=== PATIENT | female | born 1950 | race Caucasian/White ===

== ENCOUNTER 2017-09-14 19:38 | Inpatient (IN) | payer MEDICARE, BC, OTHER ==
[~2017-09-14] VITALS: Ht 167.6 cm; Wt 74.8 kg
[2017-09-14] MEDS ORDERED: hydrOXYzine HCL 25 MG TAB PO PRN (23:00)
[2017-09-14] MEDS ORDERED: MAGNESIUM HYDROXIDE SUSP 30 ML CUP PO PRN (23:00)
[2017-09-14] MEDS ORDERED: traZODone HCL 100 MG TAB PO ONE (23:00)
[2017-09-15 00:29] VITALS: BP 151/65; PULSE 78; RESP 16; TEMP 97.3; O2SAT 97
[2017-09-15 06:58] VITALS: BP 141/67; PULSE 88; RESP 17; TEMP 97.9; O2SAT 96
[2017-09-15] MEDS ORDERED: NICOTINE 21 MG/24 HR PATCH T-DERMAL SCH (09:00)
[2017-09-15] MEDS ORDERED: PNEUMOCOCCAL POLYVALENT INJ 25 MCG/0.5 ML SYR IM ONE (10:00)
[2017-09-15 10:31] LABS: ANION GAP 7 MEQ/L (5-15); BICARBONATE 29.1 MEQ/L (21.0-32.0); CHLORIDE 93 MEQ/L (98-107); GLOMERULAR FILTRATION RATE 49 ML/MIN (>89); POTASSIUM 4.7 MEQ/L (3.5-5.1); SODIUM (NA) 129 MEQ/L (136-145)
[2017-09-15 10:34] LABS: BLOOD UREA NITROGEN 17 MG/DL (7-18); HDL CHOLESTEROL 79.9 MG/DL (40.0-60.0); LDL CHOLESTEROL 72 MG/DL (0-99)
--- NOTE | 2017-09-15 11:42 | PD.CONS ---
HPI Service [facility] Consult Requested By Psychiatry service Reason for Consult medical management - history of hypertension, DM Primary Care Physician Non-Staff Diagnoses: History of Present Illness Patient is a very pleasant 67-year-old female with history of diabetes type 2 insulin-requiring on Lantus 34 units every morning and metformin, and NovoLog pen sliding scale, hypertension was transferred here from [facility] for further in patient psychiatric management apparently patient has been having problems with adjusting her medications. Appears anxious and very tearful and crying constantly. She is able to give me a very good history regarding her diabetes and hypertension. Patient states good hypoglycemic awareness. [facility] consulted for management of her medical conditions. Reviewed records from [facility] Review of Systems Constitutional: DENIES: Fever, Weight loss, Chills, Change in appetite Endocrine: DENIES: Abnorml menstrual pattern, Heat/cold intolerance, Polydipsia , Polyuria, Polyphagia Eyes: DENIES: Blurred vision, Double Vision Ears, nose, mouth, throat: DENIES: Tinnitus, Ear Pain, Epistaxis, Odynophagia Respiratory: DENIES: Cough, Hemoptysis, Sputum production, Shortness of breath Cardiovascular: DENIES: Chest pain, Palpitations, Dyspnea on Exertion, Lower Extremity Edema, Orthopnea Gastrointestinal: DENIES: Black stools, Bloody stools, Difficulty Swallowing, Anorexia Genitourinary: DENIES: Urgency, Hematuria, Vaginal discharge Musculoskeletal: DENIES: Joint pain, Stiffness Integumentary: DENIES: Pruritus Hematologic/lymphatic: DENIES: Bruising Immunologic/allergic: DENIES: Urticaria Neurologic: DENIES: Headache, Speech Problems, Tremor Psychiatric: COMPLAINS OF: Anxiety Past Family Social History Allergies: Coded Allergies: No Known Allergies (Unverified , 09/14/17) Past Medical History Hypertension Diabetes type 2 Anxiety disorder Past Surgical History Patient states had a sling placed for /r bladder pressure \ versus uterus questionable prolaps patient unsure History of tubal Reported Medications Metformin 1000 mg twice a Lantus 34 units every morning NovoLog and sliding scale Amlodipine/minoxidil 5 mg/20 mg daily aspirin 81 mg daily Coreg 6.25 mg twice a day Active Ordered Medications C MR Family History Noncontributory Social History Patient states she never smoked Very occasional wine Physical Exam Vital Signs Vital Signs Date Time Temp Pulse Resp B/P (MAP) Pulse Ox O2 Delivery O2 Flow Rate FiO2 09/15/17 06:58 97.9 88 17 141/67 (91) 96 09/15/17 00:29 97.3 78 16 151/65 (93) 97 Physical Exam GENERAL: Patient is awake alert but very tearful SKIN: No rashes, ecchymoses or lesions. Cool and dry. HEAD: Atraumatic. Normocephalic. No temporal or scalp tenderness. EYES: Pupils equal round and reactive. Extraocular motions intact. No scleral icterus. ENT: Nose without bleeding, purulent drainage or septal hematoma. Throat without erythema, tonsillar hypertrophy or exudate. Uvula midline. Airway patent. NECK: Trachea midline. No JVD or lymphadenopathy. Supple, nontender, no meningeal signs. CARDIOVASCULAR: Regular rate and rhythm without murmurs, gallops, or rubs. RESPIRATORY: Clear to auscultation. Breath sounds equal bilaterally. No wheezes , rales, or rhonchi. GASTROINTESTINAL: Abdomen soft, non-tender, nondistended. No hepato-splenomegaly , or palpable masses. No guarding. MUSCULOSKELETAL: Extremities without clubbing, cyanosis, or edema. No joint tenderness, effusion, or edema noted. No calf tenderness. Negative Homans sign bilaterally. NEUROLOGICAL: Awake and alert. Cranial nerves II through XII intact. Motor and sensory grossly within normal limits. Five out of 5 muscle strength in all muscle groups. Normal speech. Laboratory Laboratory Tests Test 09/15/17 09:11 Blood Urea Nitrogen 17 Creatinine 1.11 Random Glucose 324 Calcium Level 9.3 Sodium Level 129 Potassium Level 4.7 Chloride Level 93 Carbon Dioxide Level 29.1 Anion Gap 7 Estimat Glomerular Filtration Rate 49 Triglycerides Level 78 Cholesterol Level 167 LDL Cholesterol 72 HDL Cholesterol 79.9 Cholesterol/HDL Ratio 2.09 Result Diagram: 09/15/17 0911 Assessment and Plan Assessment and Plan 67-year-old female Anxiety disorder versus panic disorder Management per psychiatry Diabetes type 2 Hemoglobin A1c is pending Check blood sugars 3 times a day and at bedtime with sliding scale coverage for now 1800 kcal ADA diet History of hypertension monitor. start back on her amlodpidine 5 mg daily. will try to verify meds. Hyponatremia on labs likely secondary to hyperglycemia. Will check a TSH Patient up and ambulatory discuss with staff nurse to make sure she gets up and get around Discussed Condition With Patient and staff Joce Buckner MD Sep 15, 2017 11:42
[2017-09-15] MEDS ORDERED: amLODIPine BESYLATE 5 MG TAB PO SCH (12:45)
[2017-09-15] MEDS ORDERED: DEXTROSE 50% IN WATER 50 ML VIAL(D50) IV PUSH PRN (12:45)
[2017-09-15] MEDS ORDERED: GLUCAGON 1 MG/ML VIAL OTHER PRN (12:45)
[2017-09-15 15:13] LABS: HEMOGLOBIN A1a 0.8 %; HEMOGLOBIN A1b 2.3 %; HEMOGLOBIN LA1C 3.4 %; HEMOGLOBIN P3 4.4 %
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
[2017-09-15] MEDS ORDERED: ALPR.5 PO (16:14)
[2017-09-15] MEDS ORDERED: INSULIN ASPART SUPPLEMENTAL SCALE SQ SCH (17:00)
[2017-09-15] MEDS ORDERED: REMOVE OLD NICOTINE PATCH T-DERMAL SCH (21:00)
[2017-09-16] MEDS ORDERED: ASPIRIN 81 MG CHEW TAB CHEW SCH (09:00)
== END 2017-09-15 18:07 | disposition home or self-care (01) | DRG 880 ==
LOC: H250 22:25
PROVIDERS: ADMIT Psychiatry & Neurology Psychiatry; ATTEND Psychiatry & Neurology Psychiatry
DX: F41.1 Generalized anxiety disorder (principal); E11.65 Type 2 diabetes mellitus with hyperglycemia; I10 Essential (primary) hypertension; E87.1 Hypo-osmolality and hyponatremia; Z79.4 Long term (current) use of insulin
CPT/HCPCS: 80048; 80061; 82948; 83036; J1815